=== PATIENT | male | born 1940 | race Caucasian/White ===

== ENCOUNTER → 2016-10-08 | Outpatient (CLI) | payer MEDICARE, OTHER ==
[~2016-10-08] MED LIST: ACTO30TA7 PO; AMIL5TA PO; AMLO5TAB2 PO; ASPI81TA85 PO; CALC600T71 PO; COLA100C PO; FENO145T PO; FINA5TAB2 PO; HUMA100I3 SC; HYDR10TAB PO; INSUDET SC; LASI40TA PO; LOSA100T36 PO; MULT1TAB11 PO; OMEP20CA3 PO; SPIR25TA2 PO; VITA100054 PO
--- NOTE | 2016-10-08 14:07 | REP ---
CHEST X-RAY: Two views. HISTORY: Mala. Comparison chest x-ray June 06, 2016. FINDINGS: There are multiple clips and sutures in the right upper quadrant of the abdomen. The lungs are well inflated and clear. Pleural angles are sharp. Heart size is normal. Pulmonary vasculature is not increased. No significant bony abnormality is seen. IMPRESSION: Postoperative changes in the abdomen. Otherwise no active disease.
[2016-10-08 17:24] LABS: BASO % 0.5 % (0.0-1.0); EOS # 0.2 K/mm3 (0.0-0.50); EOS % 2.6 % (0.0-3.0); LARGE UNSTAINED CELL # 0.1 K/mm3 (0.0-0.4); LARGE UNSTAINED CELL % 1.9 % (0.0-4.0); LYMPH # 1.6 K/mm3 (1.5-4.5); LYMPH % 23.1 % (24.0-44.0); MEAN CORPUSCULAR HEMOGLOBIN 29.1 pg (27.0-33.0); MEAN CORPUSCULAR HGB CONC 32.7 g/dl (32.0-36.5); MEAN CORPUSCULAR VOLUME 89.1 fl (80.0-96.0); MONO # 0.3 K/mm3 (0.0-0.8); MONO % 4.6 % (0.0-5.0); NEUTROPHILS # 4.6 K/mm3 (1.8-7.7); NEUTROPHILS % 67.3 % (36.0-66.0); PLATELET COUNT, AUTOMATED 302 k/mm3 (150-450); RED CELL DISTRIBUTION WIDTH 12.4 % (11.5-14.5); WHITE BLOOD COUNT 6.8 K/mm3 (4.0-10.0)
[2016-10-08 17:58] LABS: ALBUMIN 3.8 GM/DL (3.2-5.2); ALBUMIN/GLOBULIN RATIO 1.23 (1.00-1.93); BILIRUBIN,TOTAL 0.5 MG/DL (0.2-1.0); CALCIUM LEVEL 8.7 MG/DL (8.8-10.2); CREATININE FOR GFR 2.12 MG/DL (0.70-1.30); GLOMERULAR FILTRATION RATE 32.6 (>42); POTASSIUM SERUM 4.2 MEQ/L (3.5-5.1); TOTAL PROTEIN 6.9 GM/DL (6.4-8.2)
== END ==
LOC: M CLY 11:01
PROVIDERS: ATTEND Podiatrist
DX: Z01.818 Encounter for other preprocedural examination (principal); M20.41 Other hammer toe(s) (acquired), right foot

== ENCOUNTER → 2016-10-24 | Day surgery (SDC) | payer MEDICARE, OTHER ==
[~2016-10-24] VITALS: Ht 175.3 cm; Wt 106.1 kg
[~2016-10-24] MED LIST changes: +BACITRACIN PWD 50,000 UNITS VIAL As Ordered ONE; +BACITRACIN PWD 50,000 UNITS VIAL IR ONE; +BUPIVACAINE HCL 0.5% 30 ML VIAL As Ordered ONE; +BUPIVACAINE HCL 0.5% 30 ML VIAL SC ONE; +HYDROmorphone HCL 1 MG/ML SYRINGE (J1170) IV PRN; +LIDOCAINE 2% INJ 100 MG/5 ML SDV (FOR ANES.) As Ordered ONE; +LIDOCAINE 2% MDV 20 ML VIAL As Ordered ONE; +LIDOCAINE 2% MDV 20 ML VIAL SC ONE; +LR 1,000 ML IV SCH; +MIDAZOLAM INJ 2 MG/2 ML VIAL (J2250) As Ordered ONE; +NEOSPORIN GU IRRIG 20 ML VIAL As Ordered ONE; +NEOSPORIN GU IRRIG 20 ML VIAL IR ONE; +ONDANSETRON 4MG/2ML VIAL (J2405) IV PRN; +PERCOCET 5MG/325MG TAB PO PRN; +PROPOFOL 200 MG/20 ML VIAL As Ordered ONE; +ceFAZolin SOD 1 GM in D5W MINI-BAG PLUS 50 ML IV ONE; +dexameTHASONE 4 MG/ML 1ML VIAL (J1100) As Ordered ONE; +dexameTHASONE 4 MG/ML 1ML VIAL (J1100) XX ONE; +fentaNYL 100 MCG/2 ML INJECTION (J3010) As Ordered ONE; +fentaNYL 100 MCG/2 ML INJECTION (J3010) IV PRN
--- NOTE | 2016-10-24 11:00 | REP ---
RIGHT FOOT SERIES COMPLETE, 10/24/2016. Clinical history: Postoperative joint arthroplasty second toe. Findings. There are no prior studies. Cheilotomy and fusion of the PIP joint of the second toe with threaded screw between the middle and proximal phalanx. Alignment normal. There are degenerative changes at other MTP and IP joints. Plantar calcaneal spur noted. IMPRESSION: 1. Status post cheilotomy distal head of the proximal phalanx second toe with fusion of that PIP joint with a single threaded screw between the two bones. Signed by Rishi Lawson MD 10/24/2016 11:07 A
[2016-10-24 11:35] VITALS: BP 155/72
--- NOTE | 2016-10-24 14:34 | RO ---
DATE OF SURGERY: 10/24/2016 PREOPERATIVE DIAGNOSIS: Hammertoe deformity 2nd toe right foot. 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 SURGERY PERFORMED: Proximal interphalangeal joint arthroplasty 2nd toe right foot. SURGEON: Amadou Barrios DPM PEDIATRICS TEACHER: ANESTHESIA: Local monitored anesthesia care (MAC). IRRIGATION: Dilute bacitracin, neomycin, and polymyxin B solution. IMPLANTS UTILIZED: DigiFuse 2.5 x 10-degree angled. HEMOSTASIS: Ankle pneumatic tourniquet at 225 mmHg for 17 minutes. DESCRIPTION OF OPERATION: On 10/24/2016, this 76-year-old white male was taken from his hospital room to the operating room and placed on the operating table in the supine position. Following the induction of intravenous (IV) sedation and local and regional anesthesia, the right lower extremity was prepped and draped in the usual aseptic manner. Attention was directed to the patient's 2nd toe, and the following procedure was performed: PROXIMAL INTERPHALANGEAL JOINT FUSION WITH DIGIFUSE 2.5 X 10-DEGREE ANGLED, RIGHT FOOT: Attention was directed to the patient's 2nd toe. There was noted to be a hammertoe deformity. At this time, an incision was made from the metatarsal phalangeal joint to the proximal phalangeal joint. The incision was deepened into the subcutaneous tissues, and all coursing venous tributaries were identified, underscores, clamped, cut, ligated, and electrocoagulated as necessary. A Z-plasty tendon lengthening was then performed on the 2nd toe. Medial and lateral collateral ligaments were sharply dissected free from the proximal phalanx. Utilizing a power saw, an osteotomy was performed to the level of the anatomical neck at the proximal phalanx from dorsal to plantar, medial to lateral, through and through, and extirpated from the wound in toto. The cartilage was then removed from the base of the middle phalanx. Utilizing a 2.5 x 10-degree DigiFuse, this was inserted in the standard fashion, immobilized in the proximal interphalangeal joint. The extensor tendon was then repaired with a 4-0 braided nylon loop suture with a four-stranded M-shape repair. The skin was coapted and maintained with 4-0 Monocryl in a simple interrupted and horizontal mattress-type fashion. Following the completion of the surgical procedure, 4 mg of dexamethasone sodium phosphate was instilled proximal to the surgical site. Attention was directed towards bandaging, where a sterile compressive bandage was applied, consisting of Adaptic, 4 x 4's, 4 x 4 splints, Katiuska, Kerlix, and Coban. The ankle pneumatic tourniquet was rapidly deflated, and instantaneous capillary filling time was noted to digits 1 through 5 of the patients right foot. The patient, having apparently tolerated the surgical procedure well, was taken from the operating room (OR) to the recovery room with vital signs stable, patient afebrile, further monitoring by the anesthesia department. All surgical specimens removed during the operative procedure were sent to pathology for gross and microscopic examination. Postoperative instructions were given upon discharge.
== END | disposition home or self-care (01) ==
LOC: M SDC 06:54
PROVIDERS: ATTEND Podiatrist
DX: M20.41 Other hammer toe(s) (acquired), right foot (principal); E11.51 Type 2 diabetes mellitus with diabetic peripheral angiopathy without gangrene; E11.21 Type 2 diabetes mellitus with diabetic nephropathy; E11.22 Type 2 diabetes mellitus with diabetic chronic kidney disease; E11.621 Type 2 diabetes mellitus with foot ulcer; E11.42 Type 2 diabetes mellitus with diabetic polyneuropathy; L85.2 Keratosis punctata (palmaris et plantaris); L84 Corns and callosities; B35.1 Tinea unguium; I12.9 Hypertensive chronic kidney disease with stage 1 through stage 4 chronic kidney disease, or unspecified chronic kidney disease; N18.4 Chronic kidney disease, stage 4 (severe); E78.2 Mixed hyperlipidemia; K43.9 Ventral hernia without obstruction or gangrene; K21.9 Gastro-esophageal reflux disease without esophagitis; G47.33 Obstructive sleep apnea (adult) (pediatric); I49.3 Ventricular premature depolarization; I44.1 Atrioventricular block, second degree; Z88.2 Allergy status to sulfonamides; Z88.1 Allergy status to other antibiotic agents; Z91.09 Other allergy status, other than to drugs and biological substances; J30.2 Other seasonal allergic rhinitis; Z79.899 Other long term (current) drug therapy; Z79.4 Long term (current) use of insulin; Z79.82 Long term (current) use of aspirin
CPT/HCPCS: 28285; 73630; 88300; 97116; C1776; J0690; J1100; J2250; J3010

== ENCOUNTER → 2016-11-05 | Outpatient (REF) | payer MEDICARE, OTHER ==
[~2016-11-05] MED LIST changes: -BACITRACIN PWD 50,000 UNITS VIAL As Ordered ONE; -BACITRACIN PWD 50,000 UNITS VIAL IR ONE; -BUPIVACAINE HCL 0.5% 30 ML VIAL As Ordered ONE; -BUPIVACAINE HCL 0.5% 30 ML VIAL SC ONE; -HYDROmorphone HCL 1 MG/ML SYRINGE (J1170) IV PRN; -LIDOCAINE 2% INJ 100 MG/5 ML SDV (FOR ANES.) As Ordered ONE; -LIDOCAINE 2% MDV 20 ML VIAL As Ordered ONE; -LIDOCAINE 2% MDV 20 ML VIAL SC ONE; -LR 1,000 ML IV SCH; -MIDAZOLAM INJ 2 MG/2 ML VIAL (J2250) As Ordered ONE; -NEOSPORIN GU IRRIG 20 ML VIAL As Ordered ONE; -NEOSPORIN GU IRRIG 20 ML VIAL IR ONE; -ONDANSETRON 4MG/2ML VIAL (J2405) IV PRN; -PERCOCET 5MG/325MG TAB PO PRN; -PROPOFOL 200 MG/20 ML VIAL As Ordered ONE; -ceFAZolin SOD 1 GM in D5W MINI-BAG PLUS 50 ML IV ONE; -dexameTHASONE 4 MG/ML 1ML VIAL (J1100) As Ordered ONE; -dexameTHASONE 4 MG/ML 1ML VIAL (J1100) XX ONE; -fentaNYL 100 MCG/2 ML INJECTION (J3010) As Ordered ONE; -fentaNYL 100 MCG/2 ML INJECTION (J3010) IV PRN
[2016-11-05 16:59] LABS: PERCENT SATURATION 19.3 % (19.7-37.4)
== END ==
LOC: M LAB REF 15:51
PROVIDERS: ATTEND Internal Medicine Nephrology
DX: D64.9 Anemia, unspecified (principal)

== ENCOUNTER → 2017-01-25 | Outpatient (CLI) | payer MEDICARE, OTHER ==
[~2017-01-25] MED LIST changes: -COLA100C PO; +COLA100C3 PO
== END ==
LOC: M SMT 11:36
PROVIDERS: ATTEND Urology
DX: Z12.5 Encounter for screening for malignant neoplasm of prostate (principal)
CPT/HCPCS: 36415; 51798; G0103; G0463

== ENCOUNTER → 2017-09-24 | Outpatient (CLI) | payer MEDICARE, OTHER | LOC: M CLY 11:51 | DX: R05 Cough (principal) | CPT/HCPCS: 71046; G0463 ==

== ENCOUNTER → 2017-10-11 | Outpatient (REF) | payer MEDICARE, OTHER ==
[2017-10-11 13:28] LABS: CHOLESTEROL LEVEL 192 MG/DL (<200); CHOLESTEROL RISK RATIO 3.622 (<5); HDL CHOLESTEROL 53 MG/DL (>40); LDL CHOLESTEROL 106.4 MG/DL (<100); NON-HDL-C 139 MG/DL; TRIGLYCERIDES LEVEL 163 MG/DL (<150)
== END ==
LOC: M LABDRAWC 12:03
DX: E78.00 Pure hypercholesterolemia, unspecified (principal)
CPT/HCPCS: 80061

== ENCOUNTER → 2018-02-12 | Outpatient (REF) | payer MEDICARE, OTHER ==
[2018-02-12 20:01] LABS: PSA SCREENING 0.78 NG/ML (< 4.0)
== END ==
LOC: M LABSMT 10:02
DX: Z12.5 Encounter for screening for malignant neoplasm of prostate (principal); Z23 Encounter for immunization
CPT/HCPCS: G0103

== ENCOUNTER → 2019-04-22 | Outpatient (REF) | payer MEDICARE, OTHER ==
[~2019-04-22] MED LIST changes: +ACTO30TA15 PO; -ACTO30TA7 PO; -AMIL5TA PO; +AMIL5TAB4 PO; -AMLO5TAB2 PO; +AMLO5TAB6 PO; +CALC1TAB5 PO; -CALC600T71 PO; -COLA100C3 PO; +COLA100C5 PO; -FENO145T PO; +FENO145T13 PO; -LASI40TA PO; +LASI40TA9 PO; -LOSA100T36 PO; +LOSA100T50 PO; -OMEP20CA3 PO; +OMEP20CA4 PO; +SPIR-10 PO; -SPIR25TA2 PO
[2019-04-22 12:56] LABS: CHOLESTEROL RISK RATIO 4.38 (<5)
== END ==
LOC: M LABDRAWC 11:41
PROVIDERS: ATTEND Nurse Practitioner Family
DX: E78.00 Pure hypercholesterolemia, unspecified (principal)

== ENCOUNTER → 2020-02-25 | Outpatient (REF) | payer MEDICARE, OTHER ==
[~2020-02-25] MED LIST changes: -FENO145T13 PO; +FENO145T7 PO; +OMEP1CAP73 PO; -OMEP20CA4 PO
[2020-02-25 13:49] LABS: CREATININE, URINE 74.7 MG/DL; MALB URINE SIEMENS < 5.0 MG/L; MAU/CREAT RATIO 6.6 MCG/MG (0.0-30.0)
[2020-02-25 14:10] LABS: ALBUMIN 3.4 GM/DL (3.2-5.2); BILIRUBIN,TOTAL 0.5 MG/DL (0.2-1.0); CALCIUM LEVEL 8.7 MG/DL (8.8-10.2); CHOLESTEROL RISK RATIO 3.888 (<5); CREATININE FOR GFR 1.57 MG/DL (0.70-1.30); GLOMERULAR FILTRATION RATE 45.7 (>42); TOTAL PROTEIN 6.6 GM/DL (6.4-8.2)
== END ==
LOC: M LABDRAWC 11:19
PROVIDERS: ATTEND Nurse Practitioner Family
DX: E11.21 Type 2 diabetes mellitus with diabetic nephropathy (principal); E78.00 Pure hypercholesterolemia, unspecified

== ENCOUNTER → 2020-05-10 | Outpatient (CLI) | payer MEDICARE, OTHER ==
[~2020-05-10] MED LIST changes: +AMLO1TAB24 PO; -AMLO5TAB6 PO; -ASPI81TA85 PO; +ASPI81TA86 PO
--- NOTE | 2020-06-16 10:05 | REP ---
RENAL ULTRASOUND: Delay in reporting results from hospital computer system malfunction from malware/ ransomware. HISTORY: The study is performed for acute renal failure. COMPARISON: 02/13/10 FINDINGS: The right kidney measures 11.4 x 5.4 x 5.4 cm. The left kidney measures 10.5 x 5.6 x 6.4 cm. The kidneys are normal size. Renal cortical echogenicity is normal bilaterally. There is no hydronephrosis or calculus on the right or the left. There are no solid or cystic renal masses on the right or the left. IMPRESSION: Essentially negative bilateral renal ultrasound. BLADDER ULTRASOUND: No bladder wall nodules or masses are identified on the few insurance claims representative images of the bladder presented. MTDD
== END ==
LOC: M RAD 11:40
PROVIDERS: ATTEND Nurse Practitioner Family
DX: N17.9 Acute kidney failure, unspecified (principal)

== ENCOUNTER → 2020-06-07 | Outpatient (REF) | payer MEDICARE, OTHER | LOC: M LAB REF 16:56 | PROVIDERS: ATTEND Nurse Practitioner Family | DX: D72.829 Elevated white blood cell count, unspecified (principal) ==

== ENCOUNTER → 2020-09-07 | Outpatient (REF) | payer MEDICARE, OTHER | LOC: M LAB REF 16:58 | PROVIDERS: ATTEND Nurse Practitioner Family | DX: D72.829 Elevated white blood cell count, unspecified (principal) ==

== ENCOUNTER → 2020-12-19 | Outpatient (CLI) | payer MEDICARE, OTHER ==
--- NOTE | 2020-12-19 15:41 | REP ---
INDICATION: INJURY OF LEFT FOOT . COMPARISON: None. TECHNIQUE: Four views of the left ankle are obtained. FINDINGS: Four views of the left ankle demonstrate diffuse soft tissue swelling anteriorly, medially and, and laterally. There is plantar calcaneal spurring. An obliquely oriented fracture is seen through the 5th metatarsal as noted on the foot series. There are dystrophic soft tissue calcifications. Vascular calcification is noted. Ankle mortise is intact. IMPRESSION: No ankle fracture is seen. The 5th metatarsal diaphyseal fracture described in the foot series is again noted. There is diffuse ankle soft tissue swelling. <Electronically signed by Rajesh Boogie > 12/19/20 [id number]
--- NOTE | 2020-12-19 15:41 | REP ---
INDICATION: INJURY OF LEFT FOOT . COMPARISON: None. TECHNIQUE: Four views of the left foot FINDINGS: Four views of the left foot demonstrate an obliquely oriented fracture through the 5th metatarsal diaphysis with very slight override. No significant displacement. There is associated soft tissue swelling.. Vascular calcification is observed. 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 No opaque foreign body noted. IMPRESSION: Obliquely oriented 5th metatarsal fracture.. <Electronically signed by Rajseh Boogie > 12/19/20 [id number]
== END ==
LOC: M CLY 14:57
PROVIDERS: ATTEND Physician Assistant
DX: S92.352A Displaced fracture of fifth metatarsal bone, left foot, initial encounter for closed fracture (principal); X50.1XXA Overexertion from prolonged static or awkward postures, initial encounter; Y92.009 Unspecified place in unspecified non-institutional (private) residence as the place of occurrence of the external cause; Y99.9 Unspecified external cause status; M77.32 Calcaneal spur, left foot
CPT/HCPCS: 73610; 73630; G0463

== ENCOUNTER → 2021-01-04 | Outpatient (CLI) | payer MEDICARE, OTHER ==
--- NOTE | 2021-01-04 12:17 | REP ---
INDICATION: F/U FX. COMPARISON: 12/19/2020 TECHNIQUE: Four views FINDINGS: The oblique fracture seen through the diaphysis of the 5th metatarsal is essentially unchanged. No visible callus formation is evident. The fracture involving the proximal aspect of the proximal phalanx of the 4th digit is unchanged. Other stable appearing chronic changes are also noted. 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 IMPRESSION: No significant change as described above. <Electronically signed by Lewis Webb > 01/04/21 [id number]
== END ==
LOC: M SOG 11:06
PROVIDERS: ATTEND Family Medicine
DX: S92.355S Nondisplaced fracture of fifth metatarsal bone, left foot, sequela (principal); W18.30XS Fall on same level, unspecified, sequela; Y92.009 Unspecified place in unspecified non-institutional (private) residence as the place of occurrence of the external cause

== ENCOUNTER → 2021-02-02 | Outpatient (CLI) | payer MEDICARE, OTHER ==
[~2021-02-02] MED LIST changes: +ECOT81TA5 PO; +EQLTAB27 PO
--- NOTE | 2021-02-02 08:59 | REP ---
INDICATION: F/U FX. COMPARISON: 01/04/2021 TECHNIQUE: Four views FINDINGS: The oblique fracture through the diaphysis of the 5th metatarsal is now seen with early callus formation consistent with healing. There is no evidence of callus formation surrounding the previously described fracture involving the proximal phalanx of the 4th digit. There is no evidence of an acute fracture. There are other stable chronic changes as described previously. IMPRESSION: As above <Electronically signed by Lewis Webb > 02/02/21 [id number]
== END ==
LOC: M SOG 08:04
PROVIDERS: ATTEND Orthopaedic Surgery Adult Reconstructive Orthopaedic Surgery
DX: S92.355D Nondisplaced fracture of fifth metatarsal bone, left foot, subsequent encounter for fracture with routine healing (principal); W18.30XD Fall on same level, unspecified, subsequent encounter; Y92.009 Unspecified place in unspecified non-institutional (private) residence as the place of occurrence of the external cause

== ENCOUNTER → 2021-04-04 | Outpatient (CLI) | payer MEDICARE, OTHER ==
[~2021-04-04] MED LIST changes: +CALCD50TA; +CARV3.12; +D31000TA2 PO; +FEBU40TA2; +LOSA100T45 PO; -LOSA100T50 PO; +LOSA25TA13 PO; +LOSA50TA28; +TRES1INJ
== END ==
LOC: M SOG 08:46
PROVIDERS: ATTEND Orthopaedic Surgery Adult Reconstructive Orthopaedic Surgery
DX: M25.561 Pain in right knee (principal); M17.11 Unilateral primary osteoarthritis, right knee

== ENCOUNTER → 2021-06-08 | Outpatient (REF) | payer MEDICARE, OTHER ==
[~2021-06-08] MED LIST changes: -LOSA100T45 PO; +LOSA100T50 PO; -LOSA25TA13 PO; -LOSA50TA28; +LOSA50TA88
== END ==
LOC: M LAB REF 13:03
PROVIDERS: ATTEND Nurse Practitioner Family
DX: E83.42 Hypomagnesemia (principal)

== ENCOUNTER → 2021-06-26 | Outpatient (REF) | payer MEDICARE, OTHER ==
[2021-06-26 13:30] LABS: FREE T4 0.84 NG/DL (0.76-1.46); THYROID STIMULATING HORMONE 3.4 uIU/ML (0.358-3.740)
== END ==
LOC: M SFHCCLAY 08:57
PROVIDERS: ATTEND Family Medicine
DX: Z13.29 Encounter for screening for other suspected endocrine disorder (principal); Z79.899 Other long term (current) drug therapy; Z23 Encounter for immunization
CPT/HCPCS: 84439; 84443; 90682; G0008; G0463

== ENCOUNTER → 2022-02-27 | Outpatient (CLI) | payer MEDICARE, OTHER ==
[~2022-02-27] MED LIST changes: -D31000TA2 PO; +LOSA100T45 PO; -LOSA100T50 PO; +LOSA25TA13 PO; +LOSA50TA28; +LOSA50TA28 PO; -LOSA50TA88; +VITA100093 PO
== END ==
LOC: M LAB 10:54
PROVIDERS: ATTEND Nurse Practitioner Family
DX: R06.00 Dyspnea, unspecified (principal)

== ENCOUNTER → 2022-05-30 | Outpatient (CLI) | payer MEDICARE, OTHER | LOC: M WUC 13:11 | PROVIDERS: ATTEND Nurse Practitioner Family | DX: R06.00 Dyspnea, unspecified (principal) ==

== ENCOUNTER → 2022-07-23 | Outpatient (CLI) | payer MEDICARE, OTHER ==
[~2022-07-23] MED LIST changes: -CARV3.12; +CARV3.12 PO; -FEBU40TA2; +FEBU40TA2 PO; -TRES1INJ; +TRES1INJ SQ
== END ==
LOC: M LABSMTC 09:46
PROVIDERS: ATTEND Anesthesiology
DX: Z01.812 Encounter for preprocedural laboratory examination (principal); Z20.822 Contact with and (suspected) exposure to COVID-19

== ENCOUNTER 2022-07-25 11:19 | Day surgery (SDC) | payer MEDICARE, OTHER ==
[~2022-07-25] VITALS: Ht 177.8 cm; Wt 114.5 kg
[~2022-07-25 11:19] MED LIST changes: +BSS IRRIG/VANCO(10MG)/TOBRA(5MG)/EPINEPH(1:1000-0.5CC)500ML BAG-ORONLY IR ONE; +CEFUROXIME 1MG/0.1ML INTRACAMERAL INJ As Ordered ONE; +LIDOCAINE 1% SDV 5ML VIAL As Ordered ONE; +LIDOCAINE 3.5 % 1ML OPHTH TOPICAL GEL OU ONE; +OFLOXACIN 0.3 % (OCUFLOX) OPTH SOL 5ML OS ONE; +PHENYLEPHRINE HCL 10 % OPHTH. SOL 5ML OS PRN
[2022-07-25] MEDS: TROPICAMIDE 1% OPHTH SOLN 2ML OS SCH ×3 (12:24→12:38)
[2022-07-25] MEDS: CYCLOPENTOLATE 1% OPHTH SOLN 2 ML BTL OS SCH ×3 (12:24→12:38)
[2022-07-25] MEDS: PHENYLEPHRINE 2.5% OPHTH SOL 2ML OS SCH ×3 (12:24→12:38)
[2022-07-25] MEDS ORDERED: MIDAZOLAM INJ 2MG/2ML VIAL (J2250 PER 1MG) As Ordered ONE (13:08)
[2022-07-25 13:26] VITALS: BP 150/68
== END 2022-07-25 13:51 | disposition home or self-care (01) ==
LOC: M SDC 11:19
PROVIDERS: ATTEND Ophthalmology
DX: H25.12 Age-related nuclear cataract, left eye (principal)
CPT/HCPCS: 66984; 92015; J0697; J2250; V2632

== ENCOUNTER → 2022-11-12 | Outpatient (CLI) | payer MEDICARE, OTHER ==
[~2022-11-12] MED LIST changes: -BSS IRRIG/VANCO(10MG)/TOBRA(5MG)/EPINEPH(1:1000-0.5CC)500ML BAG-ORONLY IR ONE; -CEFUROXIME 1MG/0.1ML INTRACAMERAL INJ As Ordered ONE; -LIDOCAINE 1% SDV 5ML VIAL As Ordered ONE; -LIDOCAINE 3.5 % 1ML OPHTH TOPICAL GEL OU ONE; -OFLOXACIN 0.3 % (OCUFLOX) OPTH SOL 5ML OS ONE; -PHENYLEPHRINE HCL 10 % OPHTH. SOL 5ML OS PRN
== END ==
LOC: M SLEEP 20:00
PROVIDERS: ATTEND Nurse Practitioner Family
DX: G47.33 Obstructive sleep apnea (adult) (pediatric) (principal)

== ENCOUNTER → 2022-11-27 | Outpatient (REF) | payer MEDICARE, OTHER ==
[2022-11-27 12:05] LABS: BASO # 0.1 10^3/uL (0.0-0.2); BASO % 0.4 % (0.0-1.0); EOS # 0.4 10^3/uL (0.0-0.5); EOS % 2.5 % (0.0-3.0); HEMATOCRIT 40.3 % (42.0-52.0); HEMOGLOBIN 12.8 g/dl (13.5-17.5); LYMPH # 9.3 10^3/uL (1.5-5.0); LYMPH % 56.8 % (24.0-44.0); MEAN CORPUSCULAR HGB CONC 31.8 g/dl (32.0-36.5); MEAN CORPUSCULAR VOLUME 94.4 fl (80.0-96.0); MONO # 0.9 10^3/uL (0.0-0.8); MONO % 5.2 % (2.0-8.0); NEUTROPHILS # 5.7 10^3/uL (1.5-8.5); NEUTROPHILS % 34.9 % (36.0-66.0); PLATELET COUNT, AUTOMATED 306 10^3/uL (150-450); RED BLOOD COUNT 4.27 10^6/uL (4.30-6.10); WHITE BLOOD COUNT 16.4 10^3/uL (4.0-10.0)
[2022-11-27 12:14] LABS: ALBUMIN 3.4 G/DL (3.2-5.2); BILIRUBIN,TOTAL 0.4 MG/DL (0.3-1.2); CALCIUM LEVEL 8.4 MG/DL (8.3-10.6); CREATININE FOR GFR 1.73 MG/DL (0.70-1.30); GLOMERULAR FILTRATION RATE 40.6 (>35); POTASSIUM SERUM 4.7 MMOL/L (3.5-5.1); TOTAL PROTEIN 6.2 G/DL (5.7-8.2)
== END ==
LOC: M LABDRAWC 11:16
PROVIDERS: ATTEND Internal Medicine Hematology & Oncology
DX: Z00.00 Encounter for general adult medical examination without abnormal findings (principal); D64.9 Anemia, unspecified

== ENCOUNTER → 2022-12-13 | Outpatient (CLI) | payer MEDICARE, OTHER | LOC: M SLEEP 20:00 | PROVIDERS: ATTEND Nurse Practitioner Family | DX: G47.33 Obstructive sleep apnea (adult) (pediatric) (principal) ==

== ENCOUNTER → 2023-01-09 | Outpatient (REF) | payer MEDICARE, OTHER ==
[2023-01-09 12:36] LABS: ALBUMIN 3.3 G/DL (3.2-5.2); BILIRUBIN,TOTAL 0.7 MG/DL (0.3-1.2); CALCIUM LEVEL 9.1 MG/DL (8.3-10.6); CHOLESTEROL RISK RATIO 4.88 (<5); CREATININE FOR GFR 1.68 MG/DL (0.70-1.30); HDL CHOLESTEROL 38.5 MG/DL (>40); LDL CHOLESTEROL 111.3 MG/DL (<100); NON-HDL-C 149.5 MG/DL; POTASSIUM SERUM 4.9 MMOL/L (3.5-5.1); TOTAL PROTEIN 6.5 G/DL (5.7-8.2)
== END ==
LOC: M LABDRAWC 11:18
PROVIDERS: ATTEND Nurse Practitioner Family
DX: E78.00 Pure hypercholesterolemia, unspecified (principal)

== ENCOUNTER → 2023-03-27 | Outpatient (REF) | payer MEDICARE, OTHER ==
[~2023-03-27] MED LIST changes: +CALC1CAP31; -LOSA100T45 PO; +LOSA100T46 PO
[2023-03-27 12:08] LABS: BASO # 0.1 10^3/uL (0.0-0.2); BASO % 0.4 % (0.0-1.0); EOS # 0.4 10^3/uL (0.0-0.5); EOS % 2.3 % (0.0-3.0); HEMATOCRIT 39.9 % (42.0-52.0); HEMOGLOBIN 12.8 g/dl (13.5-17.5); LYMPH # 10.6 10^3/uL (1.5-5.0); LYMPH % 62.2 % (24.0-44.0); MEAN CORPUSCULAR HEMOGLOBIN 29.7 pg (27.0-33.0); MEAN CORPUSCULAR HGB CONC 32.1 g/dl (32.0-36.5); MEAN CORPUSCULAR VOLUME 92.6 fl (80.0-96.0); MONO # 0.8 10^3/uL (0.0-0.8); MONO % 4.5 % (2.0-8.0); NEUTROPHILS # 5.2 10^3/uL (1.5-8.5); NEUTROPHILS % 30.4 % (36.0-66.0); PLATELET COUNT, AUTOMATED 296 10^3/uL (150-450); RED BLOOD COUNT 4.31 10^6/uL (4.30-6.10)
[2023-03-27 12:15] LABS: LDH LACTATE DEHYDROGENASE 175 U/L (120-246)
[2023-03-27 12:16] LABS: ALBUMIN 3.5 G/DL (3.2-5.2); ALKALINE PHOSPHATASE 114 U/L (46-116); ALT/SGPT 15 U/L (7.0-40); AST/SGOT < 8 U/L (<34); BILIRUBIN,TOTAL 0.7 MG/DL (0.3-1.2); BLOOD UREA NITROGEN 47 MG/DL (9-23); CALCIUM LEVEL 9.7 MG/DL (8.3-10.6); CARBON DIOXIDE LEVEL 28 MMOL/L (20-31); CHLORIDE LEVEL 104 MMOL/L (98-107); CREATININE FOR GFR 1.77 MG/DL (0.70-1.30); GLOMERULAR FILTRATION RATE 39.5 (>35); GLUCOSE, FASTING 151 MG/DL (74-106); POTASSIUM SERUM 4.7 MMOL/L (3.5-5.1); SODIUM LEVEL 139 MMOL/L (136-145); TOTAL PROTEIN 6.2 G/DL (5.7-8.2)
== END ==
LOC: M LABDRAWC 11:43
PROVIDERS: ATTEND Nurse Practitioner
DX: C91.10 Chronic lymphocytic leukemia of B-cell type not having achieved remission (principal)

== ENCOUNTER → 2023-05-29 | Outpatient (CLI) | payer MEDICARE, OTHER | LOC: M CLY 07:50 | PROVIDERS: ATTEND Nurse Practitioner Family | DX: M17.11 Unilateral primary osteoarthritis, right knee (principal) ==

== ENCOUNTER → 2023-05-29 | Outpatient (REF) | payer MEDICARE, OTHER ==
[2023-05-29 11:55] LABS: ALBUMIN 3.3 G/DL (3.2-5.2); ALKALINE PHOSPHATASE 126 U/L (46-116); ALT/SGPT 14 U/L (7.0-40); AST/SGOT < 8 U/L (<34); BILIRUBIN,TOTAL 0.7 MG/DL (0.3-1.2); BLOOD UREA NITROGEN 44 MG/DL (9-23); CALCIUM LEVEL 8.6 MG/DL (8.3-10.6); CARBON DIOXIDE LEVEL 27 MMOL/L (20-31); CHLORIDE LEVEL 106 MMOL/L (98-107); CHOLESTEROL LEVEL 186 MG/DL (<200); CHOLESTEROL RISK RATIO 4.97 (<5); CREATININE FOR GFR 1.87 MG/DL (0.70-1.30); GLUCOSE, FASTING 114 MG/DL (74-106); HDL CHOLESTEROL 37.4 MG/DL (>40); LDL CHOLESTEROL 111.2 MG/DL (<100); NON-HDL-C 148.6 MG/DL; POTASSIUM SERUM 4.5 MMOL/L (3.5-5.1); SODIUM LEVEL 140 MMOL/L (136-145); TOTAL PROTEIN 6.1 G/DL (5.7-8.2); TRIGLYCERIDES LEVEL 187 MG/DL (<150)
== END ==
LOC: M SFHCCLAY 07:44
PROVIDERS: ATTEND Nurse Practitioner Family
DX: E11.21 Type 2 diabetes mellitus with diabetic nephropathy (principal); E78.2 Mixed hyperlipidemia; N40.1 Benign prostatic hyperplasia with lower urinary tract symptoms; K21.9 Gastro-esophageal reflux disease without esophagitis; Z85.828 Personal history of other malignant neoplasm of skin; E11.42 Type 2 diabetes mellitus with diabetic polyneuropathy; C91.10 Chronic lymphocytic leukemia of B-cell type not having achieved remission; N18.31 Chronic kidney disease, stage 3a; M17.11 Unilateral primary osteoarthritis, right knee; G47.33 Obstructive sleep apnea (adult) (pediatric); K59.00 Constipation, unspecified

== ENCOUNTER → 2023-07-26 | Outpatient (REF) | payer MEDICARE, OTHER ==
[~2023-07-26] MED LIST changes: -FEBU40TA2 PO; +FEBU40TA6 PO
[2023-07-26 12:02] LABS: BASO # 0.1 10^3/uL (0.0-0.2); BASO % 0.4 % (0.0-1.0); EOS # 0.3 10^3/uL (0.0-0.5); EOS % 1.8 % (0.0-3.0); HEMATOCRIT 38.1 % (42.0-52.0); HEMOGLOBIN 12.2 g/dl (13.5-17.5); LYMPH % 59.4 % (24.0-44.0); MEAN CORPUSCULAR VOLUME 93.8 fl (80.0-96.0); MONO # 0.7 10^3/uL (0.0-0.8); MONO % 4.9 % (2.0-8.0); NEUTROPHILS # 5.1 10^3/uL (1.5-8.5); NEUTROPHILS % 33.2 % (36.0-66.0); PLATELET COUNT, AUTOMATED 289 10^3/uL (150-450); RED BLOOD COUNT 4.06 10^6/uL (4.30-6.10); WHITE BLOOD COUNT 15.2 10^3/uL (4.0-10.0)
[2023-07-26 12:30] LABS: ALBUMIN 3.4 G/DL (3.2-5.2); BILIRUBIN,TOTAL 0.5 MG/DL (0.3-1.2); CALCIUM LEVEL 8.9 MG/DL (8.3-10.6); CREATININE FOR GFR 1.79 MG/DL (0.70-1.30); GLOMERULAR FILTRATION RATE 38.9 (>35); POTASSIUM SERUM 4.8 MMOL/L (3.5-5.1); TOTAL PROTEIN 6.2 G/DL (5.7-8.2)
== END ==
LOC: M LABDRAWC 11:23
PROVIDERS: ATTEND Nurse Practitioner
DX: C91.10 Chronic lymphocytic leukemia of B-cell type not having achieved remission (principal)

== ENCOUNTER → 2023-11-26 | Outpatient (REF) | payer MEDICARE, OTHER ==
[~2023-11-26] MED LIST changes: +HYDR-161 PO; -HYDR10TAB PO; +LORA-753 PO; +TIMO0.5S20
[2023-11-26 17:49] LABS: ALBUMIN 3.5 G/DL (3.2-5.2); BILIRUBIN,TOTAL 0.6 MG/DL (0.3-1.2); CALCIUM LEVEL 8.9 MG/DL (8.3-10.6); CHOLESTEROL RISK RATIO 4.41 (<5); CREATININE FOR GFR 1.65 MG/DL (0.70-1.30); GLOMERULAR FILTRATION RATE 42.7 (>35); HDL CHOLESTEROL 41.2 MG/DL (>40); LDL CHOLESTEROL 92.6 MG/DL (<100); NON-HDL-C 140.8 MG/DL; POTASSIUM SERUM 5.3 MMOL/L (3.5-5.1); TOTAL PROTEIN 6.4 G/DL (5.7-8.2)
== END ==
LOC: M SFHCCLAY 11:16
PROVIDERS: ATTEND Nurse Practitioner Family
DX: E11.21 Type 2 diabetes mellitus with diabetic nephropathy (principal); E78.2 Mixed hyperlipidemia; N40.1 Benign prostatic hyperplasia with lower urinary tract symptoms

== ENCOUNTER → 2023-12-19 | Outpatient (REF) | payer MEDICARE, OTHER ==
[~2023-12-19] MED LIST changes: +LOSA100T46
[2023-12-19 11:37] LABS: ALBUMIN 3.4 G/DL (3.2-5.2); BASO # 0.1 10^3/uL (0.0-0.2); BASO % 0.5 % (0.0-1.0); BILIRUBIN,TOTAL 0.9 MG/DL (0.3-1.2); CALCIUM LEVEL 9.3 MG/DL (8.3-10.6); CREATININE FOR GFR 1.89 MG/DL (0.70-1.30); EOS # 0.3 10^3/uL (0.0-0.5); EOS % 1.8 % (0.0-3.0); GLOMERULAR FILTRATION RATE 36.5 (>35); HEMATOCRIT 37.7 % (42.0-52.0); HEMOGLOBIN 12.3 g/dl (13.5-17.5); LYMPH # 10.6 10^3/uL (1.5-5.0); LYMPH % 61.4 % (24.0-44.0); MEAN CORPUSCULAR HEMOGLOBIN 30.3 pg (27.0-33.0); MEAN CORPUSCULAR HGB CONC 32.6 g/dl (32.0-36.5); MEAN CORPUSCULAR VOLUME 92.9 fl (80.0-96.0); MONO # 0.7 10^3/uL (0.0-0.8); MONO % 4.1 % (2.0-8.0); NEUTROPHILS # 5.5 10^3/uL (1.5-8.5); PLATELET COUNT, AUTOMATED 287 10^3/uL (150-450); POTASSIUM SERUM 5.1 MMOL/L (3.5-5.1); RED BLOOD COUNT 4.06 10^6/uL (4.30-6.10); TOTAL PROTEIN 6.3 G/DL (5.7-8.2); WHITE BLOOD COUNT 17.3 10^3/uL (4.0-10.0)
== END ==
LOC: M LABDRAWC 11:08
PROVIDERS: ATTEND Nurse Practitioner
DX: C91.10 Chronic lymphocytic leukemia of B-cell type not having achieved remission (principal)

== ENCOUNTER → 2024-04-23 | Day surgery (SDC) | payer MEDICARE, OTHER ==
[~2024-04-23] VITALS: Ht 177.8 cm; Wt 112.4 kg
[~2024-04-23] MED LIST changes: +LIDOCAINE 2% W/EPINEPHRINE 20ML VIAL **PRES FREE As Ordered ONE; +TOBRADEX OPHTH OINT 3.5 GM As Ordered ONE
[2024-04-23 11:35] VITALS: BP 166/75; TEMP 97.8; O2SAT 100
== END | disposition home or self-care (01) ==
LOC: M SDC 11:00
PROVIDERS: ATTEND Ophthalmology
DX: H02.032 Senile entropion of right lower eyelid (principal); Z53.8 Procedure and treatment not carried out for other reasons

== ENCOUNTER → 2024-05-13 | Outpatient (REF) | payer MEDICARE, OTHER ==
[~2024-05-13] MED LIST changes: -LIDOCAINE 2% W/EPINEPHRINE 20ML VIAL **PRES FREE As Ordered ONE; -TOBRADEX OPHTH OINT 3.5 GM As Ordered ONE
== END ==
LOC: M LAB REF 17:02
PROVIDERS: ATTEND Nurse Practitioner Family
DX: N39.0 Urinary tract infection, site not specified (principal)

== ENCOUNTER → 2024-06-02 | Outpatient (REF) | payer MEDICARE, OTHER ==
[2024-06-02 17:52] LABS: ALBUMIN 3.4 G/DL (3.2-5.2); BILIRUBIN,TOTAL 0.5 MG/DL (0.3-1.2); CALCIUM LEVEL 8.6 MG/DL (8.3-10.6); CHOLESTEROL RISK RATIO 4.87 (<5); CREATININE FOR GFR 1.7 MG/DL (0.70-1.30); GLOMERULAR FILTRATION RATE 41.2 (>35); HDL CHOLESTEROL 39.8 MG/DL (>40); LDL CHOLESTEROL 95.4 MG/DL (<100); NON-HDL-C 154.2 MG/DL; POTASSIUM SERUM 5.4 MMOL/L (3.5-5.1); TOTAL PROTEIN 6.4 G/DL (5.7-8.2)
[2024-06-02 18:44] LABS: HEMOGLOBIN A1c 7.4 % (4.0-6.0)
== END ==
LOC: M SFHCCLAY 12:02
PROVIDERS: ATTEND Nurse Practitioner Family
DX: E11.21 Type 2 diabetes mellitus with diabetic nephropathy (principal)

== ENCOUNTER → 2024-06-12 | Outpatient (REF) | payer MEDICARE, OTHER ==
[2024-06-12 17:19] LABS: BACTERIA, URINE AUTO NEGATIVE (NEGATIVE); BILIRUBIN, URINE AUTO NEGATIVE (NEGATIVE); BLOOD, URINE BLOOD NEGATIVE (NEGATIVE); COLOR, URINE YELLOW (YELLOW); GLUCOSE, URINE (UA) AUTO NEGATIVE (NEGATIVE); KETONE, URINE AUTO NEGATIVE (NEGATIVE); LEUKOCYTE ESTERASE, URINE AUTO 3+ (NEGATIVE); MUCUS, URINE SMALL (NEGATIVE); NITRITE, URINE AUTO NEGATIVE (NEGATIVE); PROTEIN, URINE AUTO NEGATIVE (NEGATIVE); RBC, URINE AUTO 12 /HPF (0-3); SPECIFIC GRAVITY URINE AUTO 1.008 (1.002-1.035); SQUAMOUS EPITHELIAL CELL UR AU 1 /HPF (0-6); UROBILINOGEN, URINE AUTO 0.2 mg/dL (0.0-2.0); WBC, URINE AUTO 179 /HPF (0-3)
[2024-06-15 07:02] LABS: APPEARANCE, URINE HAZY (CLEAR)
== END ==
LOC: M LABDRAWC 16:38
PROVIDERS: ATTEND Nurse Practitioner Family
DX: N39.0 Urinary tract infection, site not specified (principal)

== ENCOUNTER → 2024-06-23 | Outpatient (REF) | payer MEDICARE, OTHER ==
[2024-06-23 12:42] LABS: ALBUMIN 3.4 G/DL (3.2-5.2); ALKALINE PHOSPHATASE 122 U/L (46-116); ALT/SGPT 16 U/L (7.0-40); AST/SGOT < 8 U/L (<34); BASO # 0.1 10^3/uL (0.0-0.2); BASO % 0.4 % (0.0-1.0); BILIRUBIN,TOTAL 0.3 MG/DL (0.3-1.2); BLOOD UREA NITROGEN 60 MG/DL (9-23); CARBON DIOXIDE LEVEL 26 MMOL/L (20-31); CHLORIDE LEVEL 105 MMOL/L (98-107); CREATININE FOR GFR 1.81 MG/DL (0.70-1.30); EOS # 0.5 10^3/uL (0.0-0.5); EOS % 3.1 % (0.0-3.0); GLOMERULAR FILTRATION RATE 38.3 (>35); GLUCOSE, FASTING 148 MG/DL (74-106); HEMATOCRIT 38.2 % (42.0-52.0); HEMOGLOBIN 12.1 g/dl (13.5-17.5); LYMPH # 9.3 10^3/uL (1.5-5.0); LYMPH % 57.1 % (24.0-44.0); MEAN CORPUSCULAR HEMOGLOBIN 30.4 pg (27.0-33.0); MEAN CORPUSCULAR HGB CONC 31.7 g/dl (32.0-36.5); MONO # 1.7 10^3/uL (0.0-0.8); MONO % 10.3 % (2.0-8.0); NEUTROPHILS # 4.7 10^3/uL (1.5-8.5); NEUTROPHILS % 28.8 % (36.0-66.0); PLATELET COUNT, AUTOMATED 312 10^3/uL (150-450); POTASSIUM SERUM 5.1 MMOL/L (3.5-5.1); RED BLOOD COUNT 3.98 10^6/uL (4.30-6.10); SODIUM LEVEL 137 MMOL/L (136-145); TOTAL PROTEIN 6.5 G/DL (5.7-8.2); WHITE BLOOD COUNT 16.2 10^3/uL (4.0-10.0)
== END ==
LOC: M LABDRAWC 11:44
PROVIDERS: ATTEND Specialist
DX: C91.10 Chronic lymphocytic leukemia of B-cell type not having achieved remission (principal)

== ENCOUNTER → 2024-07-15 | Outpatient (CLI) | payer MEDICARE, OTHER ==
[~2024-07-15] MED LIST changes: +ALBU2.5V10; +ALBU8.5H; +FURO40TA2 PO; -LOSA100T46; +NYST-13; +THERTAB52 PO
== END ==
LOC: M CLY 11:11
PROVIDERS: ATTEND Physician Assistant
DX: R06.2 Wheezing (principal)

== ENCOUNTER → 2024-07-15 | Outpatient (REF) | payer MEDICARE, OTHER ==
[~2024-07-15] MED LIST changes: -ALBU2.5V10; -ALBU8.5H; -FURO40TA2 PO; +LOSA100T46; -THERTAB52 PO
== END ==
LOC: M SFHCCLAY 16:58
PROVIDERS: ATTEND Nurse Practitioner Family
DX: R06.2 Wheezing (principal)

== ENCOUNTER → 2024-07-27 | Outpatient (CLI) | payer MEDICARE, OTHER ==
[~2024-07-27] MED LIST changes: +ALBU2.5V10; +ALBU8.5H; +FURO40TA2 PO; -LOSA100T46; +THERTAB52 PO
== END ==
LOC: M CLY 09:13
PROVIDERS: ATTEND Nurse Practitioner Family
DX: J06.9 Acute upper respiratory infection, unspecified (principal)

== ENCOUNTER → 2024-09-24 | Outpatient (REF) | payer MEDICARE, OTHER ==
[2024-09-24 18:34] LABS: BASO # 0.1 10^3/uL (0.0-0.2); BASO % 0.4 % (0.0-1.0); EOS # 0.9 10^3/uL (0.0-0.5); EOS % 4.8 % (0.0-3.0); HEMATOCRIT 36.9 % (42.0-52.0); HEMOGLOBIN 11.6 g/dl (13.5-17.5); LYMPH # 8.6 10^3/uL (1.5-5.0); LYMPH % 46.9 % (24.0-44.0); MEAN CORPUSCULAR HEMOGLOBIN 30.8 pg (27.0-33.0); MEAN CORPUSCULAR HGB CONC 31.4 g/dl (32.0-36.5); MEAN CORPUSCULAR VOLUME 97.9 fl (80.0-96.0); MONO # 0.8 10^3/uL (0.0-0.8); MONO % 4.2 % (2.0-8.0); NEUTROPHILS # 7.9 10^3/uL (1.5-8.5); NEUTROPHILS % 43.4 % (36.0-66.0); PLATELET COUNT, AUTOMATED 296 10^3/uL (150-450); RED BLOOD COUNT 3.77 10^6/uL (4.30-6.10); WHITE BLOOD COUNT 18.4 10^3/uL (4.0-10.0)
[2024-09-24 19:01] LABS: ALBUMIN 3.4 G/DL (3.2-5.2); BILIRUBIN,TOTAL 0.5 MG/DL (0.3-1.2); CALCIUM LEVEL 9.3 MG/DL (8.3-10.6); CREATININE FOR GFR 1.87 MG/DL (0.70-1.30); GLOMERULAR FILTRATION RATE 36.9 (>35); POTASSIUM SERUM 5.3 MMOL/L (3.5-5.1); TOTAL PROTEIN 6.6 G/DL (5.7-8.2)
== END ==
LOC: M SFHCCLAY 14:31
PROVIDERS: ATTEND Physician Assistant
DX: C91.10 Chronic lymphocytic leukemia of B-cell type not having achieved remission (principal); E87.5 Hyperkalemia

== ENCOUNTER → 2024-09-28 | Outpatient (REF) | payer MEDICARE, OTHER ==
[2024-09-28 13:36] LABS: APPEARANCE, URINE CLOUDY (CLEAR); BACTERIA, URINE AUTO NEGATIVE (NEGATIVE); BILIRUBIN, URINE AUTO NEGATIVE (NEGATIVE); BLOOD, URINE BLOOD NEGATIVE (NEGATIVE); COLOR, URINE YELLOW (YELLOW); GLUCOSE, URINE (UA) AUTO 3+ mg/dL (NEGATIVE); KETONE, URINE AUTO NEGATIVE (NEGATIVE); LEUKOCYTE ESTERASE, URINE AUTO 3+ (NEGATIVE); MUCUS, URINE SMALL (NEGATIVE); NITRITE, URINE AUTO NEGATIVE (NEGATIVE); PROTEIN, URINE AUTO NEGATIVE (NEGATIVE); RBC, URINE AUTO 2 /HPF (0-3); SPECIFIC GRAVITY URINE AUTO 1.009 (1.002-1.035); SQUAMOUS EPITHELIAL CELL UR AU 0 /HPF (0-6); UROBILINOGEN, URINE AUTO 0.2 mg/dL (0.0-2.0); WBC, URINE AUTO TNTC /HPF (0-3)
[2024-09-28 13:46] LABS: HEMOGLOBIN A1c 8.4 % (4.0-6.0)
== END ==
LOC: M SFHCCLAY 07:11
PROVIDERS: ATTEND Physician Assistant
DX: E87.5 Hyperkalemia (principal); N40.1 Benign prostatic hyperplasia with lower urinary tract symptoms; E11.29 Type 2 diabetes mellitus with other diabetic kidney complication

== ENCOUNTER → 2024-10-14 | Outpatient (REF) | payer MEDICARE, OTHER ==
[2024-10-14 17:36] LABS: HEMOGLOBIN A1c 8.8 % (4.0-6.0)
== END ==
LOC: M LABDRAWC 16:36
PROVIDERS: ATTEND Nurse Practitioner Family
DX: E11.21 Type 2 diabetes mellitus with diabetic nephropathy (principal)

== ENCOUNTER → 2024-10-21 | Outpatient (CLI) | payer MEDICARE, OTHER | LOC: M CARPUL 09:59 | PROVIDERS: ATTEND Physician Assistant | DX: R06.2 Wheezing (principal) ==

== ENCOUNTER → 2024-10-28 | Outpatient (REF) | payer MEDICARE, OTHER ==
[2024-10-28 18:47] LABS: ALBUMIN 3.2 G/DL (3.2-5.2); BILIRUBIN,TOTAL 0.7 MG/DL (0.3-1.2); CALCIUM LEVEL 9.5 MG/DL (8.3-10.6); CREATININE FOR GFR 2.05 MG/DL (0.70-1.30); GLOMERULAR FILTRATION RATE 33.2 (>35); POTASSIUM SERUM 4.8 MMOL/L (3.5-5.1); THYROID STIMULATING HORMONE 2.166 uIU/ML (0.55-4.78); TOTAL PROTEIN 6.3 G/DL (5.7-8.2)
[2024-10-28 19:06] LABS: HEMATOCRIT 38.1 % (42.0-52.0); HEMOGLOBIN 12.2 g/dl (13.5-17.5); MEAN CORPUSCULAR HEMOGLOBIN 30.8 pg (27.0-33.0); MEAN CORPUSCULAR VOLUME 96.2 fl (80.0-96.0); PLATELET COUNT, AUTOMATED 370 10^3/uL (150-450); RED BLOOD COUNT 3.96 10^6/uL (4.30-6.10); WHITE BLOOD COUNT 16.3 10^3/uL (4.0-10.0)
[2024-10-28 20:51] LABS: ATYPICAL LYMPH 4 % (0-5); EOSINOPHILS 4 % (0-3); LYMPHOCYTES 54 % (16-44); MONOCYTES 3 % (0-5); NEUTROPHILS 35 % (28-66); PLATELET ESTIMATE NORMAL (NORMAL)
== END ==
LOC: M SFHCCLAY 09:36
PROVIDERS: ATTEND Physician Assistant
DX: R06.09 Other forms of dyspnea (principal)

== ENCOUNTER → 2024-12-02 | Outpatient (REF) | payer MEDICARE, OTHER ==
[2024-12-02 17:53] LABS: BASO # 0.1 10^3/uL (0.0-0.2); BASO % 0.4 % (0.0-1.0); EOS # 0.4 10^3/uL (0.0-0.5); EOS % 2.4 % (0.0-3.0); HEMATOCRIT 39.8 % (42.0-52.0); HEMOGLOBIN 12.9 g/dl (13.5-17.5); LYMPH # 7.6 10^3/uL (1.5-5.0); LYMPH % 51.2 % (24.0-44.0); MEAN CORPUSCULAR HEMOGLOBIN 30.4 pg (27.0-33.0); MEAN CORPUSCULAR HGB CONC 32.4 g/dl (32.0-36.5); MEAN CORPUSCULAR VOLUME 93.9 fl (80.0-96.0); MONO # 0.8 10^3/uL (0.0-0.8); MONO % 5.1 % (2.0-8.0); NEUTROPHILS % 40.6 % (36.0-66.0); PLATELET COUNT, AUTOMATED 332 10^3/uL (150-450); RED BLOOD COUNT 4.24 10^6/uL (4.30-6.10); WHITE BLOOD COUNT 14.9 10^3/uL (4.0-10.0)
[2024-12-02 17:58] LABS: ALBUMIN 3.5 G/DL (3.2-5.2); ALKALINE PHOSPHATASE 150 U/L (40-129); ALT/SGPT 19 U/L (7.0-40); AST/SGOT 15 U/L (<34); BILIRUBIN,TOTAL 0.4 MG/DL (0.3-1.2); BLOOD UREA NITROGEN 48 MG/DL (9-23); CALCIUM LEVEL 9.2 MG/DL (8.3-10.6); CARBON DIOXIDE LEVEL 29 MMOL/L (20-31); CHLORIDE LEVEL 102 MMOL/L (98-107); CREATININE FOR GFR 1.99 MG/DL (0.70-1.30); GLOMERULAR FILTRATION RATE 34.3 (>35); GLUCOSE, FASTING 86 MG/DL (74-106); IRON (FE) 40 UG/DL (65-175); MAGNESIUM LEVEL 2.4 MG/DL (1.8-2.4); PERCENT SATURATION 12.5 % (19.7-50.0); POTASSIUM SERUM 5.3 MMOL/L (3.5-5.1); RHEUMATOID FACTOR QUANT < 3.5 IU/ML (<14); SODIUM LEVEL 139 MMOL/L (136-145); TOTAL IRON BINDING CAPACITY 320 UG/DL (250-425); TOTAL PROTEIN 6.7 G/DL (5.7-8.2)
[2024-12-02 17:59] LABS: FERRITIN 25.4 NG/ML (10.5-307.3); THYROID STIMULATING HORMONE 3.565 uIU/ML (0.55-4.78)
[2024-12-02 18:00] LABS: FREE T4 0.98 NG/DL (0.89-1.76); VITAMIN B12 LEVEL 694 PG/ML (211-911)
[2024-12-02 18:02] LABS: FOLATE > 24.00 NG/ML (>5.4)
[2024-12-02 18:03] LABS: ERYTHROCYTE SEDIMENTATION RATE 52 mm/hr (0-20)
== END ==
LOC: M SFHCCLAY 12:41
PROVIDERS: ATTEND Nurse Practitioner Family
DX: M25.561 Pain in right knee (principal); Z23 Encounter for immunization; R42 Dizziness and giddiness; N28.89 Other specified disorders of kidney and ureter; Z79.899 Other long term (current) drug therapy

== ENCOUNTER → 2024-12-02 | Outpatient (CLI) | payer MEDICARE, OTHER | LOC: M CLY 12:47 | PROVIDERS: ATTEND Nurse Practitioner Family | DX: M25.561 Pain in right knee (principal) ==

== ENCOUNTER → 2024-12-24 | Outpatient (CLI) | payer MEDICARE, OTHER ==
[~2024-12-24] MED LIST changes: +PROHANCE 279.3MG/ML 15ML VIAL ONE; +PROHANCE 279.3MG/ML 5ML VIAL ONE
== END ==
LOC: M PLAIMG 10:41
PROVIDERS: ATTEND Nurse Practitioner Family
DX: N28.89 Other specified disorders of kidney and ureter (principal)
CPT/HCPCS: 74183; A9576

== ENCOUNTER → 2025-04-26 | Outpatient (REF) | payer MEDICARE, OTHER ==
[~2025-04-26] MED LIST changes: +BUDE0.5S6; +FLUT1BLS8; +LATA1DRO; -NYST-13; +NYST0.1C; -PROHANCE 279.3MG/ML 15ML VIAL ONE; -PROHANCE 279.3MG/ML 5ML VIAL ONE
== END ==
LOC: M SFHCCLAY 17:15
PROVIDERS: ATTEND Physician Assistant
DX: R30.0 Dysuria (principal)

== ENCOUNTER → 2025-04-26 | Outpatient (REF) | payer MEDICARE, OTHER | LOC: M SFHCCLAY 10:45 | PROVIDERS: ATTEND Physician Assistant | DX: Z53.9 Procedure and treatment not carried out, unspecified reason (principal) ==

== ENCOUNTER → 2025-05-26 | Outpatient (REF) | payer MEDICARE, OTHER ==
[2025-05-26 13:44] LABS: CHOLESTEROL LEVEL 194.0 MG/DL (<200); CHOLESTEROL RISK RATIO 4.74 (<5); LDL CHOLESTEROL 112.7 MG/DL (<100); NON-HDL-C 153.1 MG/DL; TRIGLYCERIDES LEVEL 202.0 MG/DL (<150)
== END ==
LOC: M LABDRAWC 12:24
PROVIDERS: ATTEND Nurse Practitioner Acute Care
DX: E78.5 Hyperlipidemia, unspecified (principal)

== ENCOUNTER 2025-07-15 09:47 | Day surgery (SDC) | payer MEDICARE, OTHER ==
[~2025-07-15] VITALS: Ht 177.8 cm; Wt 111.1 kg
[~2025-07-15 09:47] MED LIST changes: +ACET650T61 PO; +ATOR1TAB21 PO; +BENA25CA4 PO; +FAMO20TA PO; +MELA2.5C4 PO; +MIDAZOLAM INJ 2 MG/2 ML VIAL As Ordered ONE; +PHENYLEPHRINE 10% OPHTH SOL 5ML OD PRN
[2025-07-15] MEDS: LIDOCAINE 3.5% 1 ML OPHTH TOPICAL GEL OU ONE (11:03)
[2025-07-15] MEDS: OFLOXACIN 0.3 % (OCUFLOX) OPTH SOL 5ML OD ONE (11:03)
[2025-07-15] MEDS: CYCLOPENTOLATE 1% OPHTH SOLN 2 ML BTL OD SCH (11:04)
[2025-07-15] MEDS: PHENYLEPHRINE 2.5% OPHTH SOL 2ML OD SCH (11:04)
[2025-07-15] MEDS: TROPICAMIDE 1% OPHTH SOLN 15ML OD SCH (11:04)
[2025-07-15] MEDS: LIDOCAINE 1% SDV 5 ML VIAL As Ordered ONE (11:08)
[2025-07-15] MEDS: BSS IRRIG/VANCO(10MG)/TOBRA(5MG)/EPINEPH(1:1000-0.5CC)500ML BAG-ORONLY As Ordered ONE (11:08)
[2025-07-15] MEDS: CEFUROXIME 1 MG/0.1 ML INTRACAMERAL INJ As Ordered ONE (11:08)
[2025-07-15 11:40] VITALS: BP 138/80; TEMP 97.1; O2SAT 97
== END 2025-07-15 15:19 | disposition home or self-care (01) ==
LOC: M SDC 09:47
PROVIDERS: ATTEND Ophthalmology
DX: E11.36 Type 2 diabetes mellitus with diabetic cataract (principal); H25.11 Age-related nuclear cataract, right eye; I13.0 Hypertensive heart and chronic kidney disease with heart failure and stage 1 through stage 4 chronic kidney disease, or unspecified chronic kidney disease; I50.9 Heart failure, unspecified; N18.30 Chronic kidney disease, stage 3 unspecified; E11.22 Type 2 diabetes mellitus with diabetic chronic kidney disease; G47.30 Sleep apnea, unspecified; C95.90 Leukemia, unspecified not having achieved remission; Z79.82 Long term (current) use of aspirin; Z79.899 Other long term (current) drug therapy; Z79.4 Long term (current) use of insulin; Z79.51 Long term (current) use of inhaled steroids; Z88.2 Allergy status to sulfonamides; Z91.048 Other nonmedicinal substance allergy status
CPT/HCPCS: 66984; J0697; J2250; J3010; V2632

== ENCOUNTER → 2025-07-21 | Outpatient (CLI) | payer MEDICARE, OTHER ==
[~2025-07-21] MED LIST changes: -MIDAZOLAM INJ 2 MG/2 ML VIAL As Ordered ONE; -PHENYLEPHRINE 10% OPHTH SOL 5ML OD PRN; +PROHANCE 279.3MG/ML 15ML VIAL As Ordered ONE; +PROHANCE 279.3MG/ML 5ML VIAL As Ordered ONE
== END ==
LOC: M RAD 10:04
PROVIDERS: ATTEND Nurse Practitioner Family
DX: D41.02 Neoplasm of uncertain behavior of left kidney (principal); K86.2 Cyst of pancreas; N26.1 Atrophy of kidney (terminal); N28.1 Cyst of kidney, acquired
CPT/HCPCS: 74183; A9576

== ENCOUNTER → 2025-08-11 | Outpatient (REF) | payer MEDICARE, OTHER ==
[~2025-08-11] MED LIST changes: -PROHANCE 279.3MG/ML 15ML VIAL As Ordered ONE; -PROHANCE 279.3MG/ML 5ML VIAL As Ordered ONE
[2025-08-11 14:25] LABS: ALT/SGPT 18.0 U/L (7.0-40); AST/SGOT 18.0 U/L (<34); CALCIUM LEVEL 8.8 MG/DL (8.3-10.6); CARBON DIOXIDE LEVEL 28.0 MMOL/L (20-31); CHLORIDE LEVEL 103.0 MMOL/L (98-107); CHOLESTEROL LEVEL 127.0 MG/DL (<200); CHOLESTEROL RISK RATIO 3.29 (<5); CREATININE FOR GFR 2.55 MG/DL (0.70-1.30); GLOMERULAR FILTRATION RATE 24.1 (>35); LDL CHOLESTEROL 67.0 MG/DL (<100); NON-HDL-C 88.4 MG/DL; POTASSIUM SERUM 4.9 MMOL/L (3.5-5.1); SODIUM LEVEL 141.0 MMOL/L (136-145); TRIGLYCERIDES LEVEL 107.0 MG/DL (<150)
== END ==
LOC: M LABDRAWC 12:40
PROVIDERS: ATTEND Nurse Practitioner Acute Care
DX: E78.5 Hyperlipidemia, unspecified (principal)

== ENCOUNTER → 2025-09-10 | Outpatient (REF) | payer MEDICARE, OTHER ==
[~2025-09-10] MED LIST changes: -LORA-753 PO; +LORA-973 PO
[2025-09-10 17:47] LABS: BASO # 0.1 10^3/uL (0.0-0.2); BASO % 0.3 % (0.0-1.0); EOS # 0.4 10^3/uL (0.0-0.5); EOS % 2.4 % (0.0-3.0); LYMPH # 8.7 10^3/uL (1.5-5.0); LYMPH % 55.8 % (24.0-44.0); MONO # 0.7 10^3/uL (0.0-0.8); MONO % 4.6 % (2.0-8.0); NEUTROPHILS # 5.7 10^3/uL (1.5-8.5); NEUTROPHILS % 36.6 % (36.0-66.0); PLATELET COUNT, AUTOMATED 339 10^3/uL (150-450)
[2025-09-10 17:53] LABS: ALT/SGPT 18.0 U/L (7.0-40); AST/SGOT 13.0 U/L (<34); CALCIUM LEVEL 8.8 MG/DL (8.3-10.6); CARBON DIOXIDE LEVEL 27.0 MMOL/L (20-31); CHLORIDE LEVEL 104.0 MMOL/L (98-107); CHOLESTEROL LEVEL 200.0 MG/DL (<200); CHOLESTEROL RISK RATIO 4.72 (<5); CREATININE FOR GFR 1.8 MG/DL (0.70-1.30); GLOMERULAR FILTRATION RATE 36.7 (>35); LDL CHOLESTEROL 81.7 MG/DL (<100); NON-HDL-C 157.7 MG/DL; POTASSIUM SERUM 5.6 MMOL/L (3.5-5.1); SODIUM LEVEL 138.0 MMOL/L (136-145); TRIGLYCERIDES LEVEL 380.0 MG/DL (<150)
[2025-09-10 18:53] LABS: ESTIMATED AVERAGE GLUCOSE 169.0 MG/DL (60-110)
== END ==
LOC: M SFHCCLAY 14:23
PROVIDERS: ATTEND Nurse Practitioner Family
DX: M25.50 Pain in unspecified joint (principal); E78.2 Mixed hyperlipidemia; E11.21 Type 2 diabetes mellitus with diabetic nephropathy; G47.33 Obstructive sleep apnea (adult) (pediatric); C91.10 Chronic lymphocytic leukemia of B-cell type not having achieved remission; N18.31 Chronic kidney disease, stage 3a; R33.9 Retention of urine, unspecified; K21.9 Gastro-esophageal reflux disease without esophagitis; J44.89 Other specified chronic obstructive pulmonary disease; I10 Essential (primary) hypertension; I44.0 Atrioventricular block, first degree

== ENCOUNTER → 2025-09-14 | Outpatient (REF) | payer MEDICARE, OTHER | LOC: M SFHCCLAY 07:06 | PROVIDERS: ATTEND Nurse Practitioner Family | DX: E87.5 Hyperkalemia (principal) ==